=== PATIENT | female | born 1955 | race Caucasian/White ===

== ENCOUNTER 2016-10-13 08:13 | Outpatient (CLI) | payer OTHER | END 2016-10-13 08:14 | disposition home or self-care (01) | DX: M81.0 Age-related osteoporosis without current pathological fracture (principal); N95.8 Other specified menopausal and perimenopausal disorders ==

== ENCOUNTER 2018-02-24 16:09 | Outpatient (CLI) | payer OTHER ==
--- NOTE | 2018-02-24 23:03 | XRAY Report ---
Reason: LEFT HIP PAIN WITH LIMITED EXTERNAL ROTATION Procedure Date: 02/24/2018 Accession Number: [id number] / [id number] Procedure: XR - Hip w/Pelvis 2-3V LT CPT Code: FULL RESULT: EXAM: LEFT HIP AND PELVIS RADIOGRAPHY EXAM DATE: 02/24/2018 04:37 PM. HISTORY: LEFT HIP PAIN WITH LIMITED EXTERNAL ROTATION. COMPARISONS: None. TECHNIQUE: 1 view of the pelvis and 1 view of the hip. FINDINGS: Bones: Normal. No fracture or bone lesion. Joints: There is left hip mild joint space narrowing and marginal osteophyte formation. 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 No significant right hip degenerative disease. The sacroiliac joints are unremarkable. Soft Tissues: Moderate stool within the right colon. IMPRESSION: 1. No evidence of acute fracture or dislocation. 2. 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 3. 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 RADIA
== END 2018-02-24 16:10 | disposition home or self-care (01) ==
LOC: DI 16:09
PROVIDERS: ATTEND Chiropractor Neurology
DX: M16.12 Unilateral primary osteoarthritis, left hip (principal); M86.8X8 Other osteomyelitis, other site

== ENCOUNTER 2018-09-06 14:16 | Outpatient (CLI) | payer OTHER ==
--- NOTE | 2018-09-07 08:22 | Mammography Report ---
Reason: ENCOUNTER FOR SCREENING MAMMOGRAM FOR MALIGNANT NE Procedure Date: 09/06/2018 Accession Number: [id number] / [id number] Procedure: [facility] - Screening Mammo w/Tavo CPT Code: FULL RESULT: EXAM: Screening Mammo w/Tavo DATE: 09/06/2018 2:53 PM CLINICAL HISTORY: Routine screening. No reported personal history of breast cancer. Family history breast cancer in a paternal aunt, age unknown. TECHNIQUE: (B) - Bilateral Bilateral CC and MLO views were obtained. COMPARISON: 05/28/2015 PARENCHYMAL PATTERN: (A) - The breasts demonstrate scattered fibroglandular densities bilaterally. FINDINGS: Bilateral breasts: There are no suspicious masses, calcifications, or areas of distortion. There is a stable oval, circumscribed margin, equal density mass in the central left breast. IMPRESSION: Benign findings. BI-RADS category 2 RECOMMENDATION: (ANNUAL) - Recommend routine annual screening mammography. BI-RADS CATEGORY: (2) - Benign Findings STANDARD QUALIFYING STATEMENTS: 1. This examination was not reviewed with the aid of Computer-Aided Detection (CAD). 2. A negative or benign imaging report should not preclude biopsy if clinically suspicious findings are present. 3. Dense breasts may obscure an underlying neoplasm. 4. This examination was reviewed with the aid of 3D breast imaging (tomosynthesis).
== END 2018-09-06 14:17 | disposition home or self-care (01) ==
LOC: DI 14:16
PROVIDERS: ATTEND Physician Assistant
DX: Z12.31 Encounter for screening mammogram for malignant neoplasm of breast (principal); Z80.3 Family history of malignant neoplasm of breast
CPT/HCPCS: 77063; 77067